=== PATIENT | male | born 1950 | race Caucasian/White ===

== ENCOUNTER 2020-02-26 08:10 | Outpatient (CLI) | payer MEDICARE, OTHER ==
--- NOTE | 2020-02-26 17:51 | XRAY Report ---
PROCEDURE: Elbow 3 View LT INDICATIONS: LEFT ELBOW PAIN TECHNIQUE: 3 views of the elbow were acquired. COMPARISON: None FINDINGS: Bones: No fractures or dislocations. No suspicious bony lesions. Soft tissues: Small joint effusion. No suspicious soft tissue calcifications. Marked soft tissue swel ling noted adjacent to the olecranon process concerning for olecranon bursitis. IMPRESSION: 1. No fracture. No acute osseous lesion. If there persistent symptoms or continued clinical concern f or pathology, then repeat plain film radiographs (7-10 days) or advanced imaging (CT, MR, bone scan) should be considered for further evaluation. 2. Small nonspecific joint effusion. Occult injury cannot be completely excluded. 3. Marked posterior soft tissue swelling concerning for olecranon bursitis. Reviewed by: Karla Perez MD, PhD on 02/26/2020 4:50 PM [place] Approved by: Karla Perez MD, PhD on 02/26/2020 4:50 PM [place] Station ID: [id number]
== END 2020-02-26 23:59 | disposition home or self-care (01) ==
LOC: DI.N 08:10
PROVIDERS: ATTEND Orthopaedic Surgery
DX: M25.522 Pain in left elbow (principal); M25.422 Effusion, left elbow